=== PATIENT | male | born 1980 | race Caucasian/White ===

== ENCOUNTER 2017-01-10 22:09 | Emergency (ER) | payer SELFPAY ==
[2017-01-10] MEDS ORDERED: Sodium Chloride 0.9% 1000 ML 1,000 ML IV STA (22:44)
[2017-01-10] MEDS ORDERED: Sodium Chloride 0.9% 1000 ML 1,000 ML ONE (22:48)
--- NOTE | 2017-01-10 22:50 | ERPHSYRPT ---
- History of Present Illness Time Seen by Provider: 01/10/17 22:40 Source: patient Exam Limitations: no limitations Patient Subjective Stated Complaint: pt states he has been having chest pain for approx 1-2 hrs. states he has been trying to make it home to [place] and has been walking all day. states he has had a lot of stress recently Triage Nursing Assessment: pt awake and alert, asnwers questions approp. pt tearful. respirations nonlabored with lungs cta. sinus rhythm/ sinus tach on monitor. pt c/o midsternal pain, denies radiation. Physician History: 36-year-old white male arrives with complaint of pain in his anterior chest described as sharp shooting symptoms for approximately one to 2 hours she states she's been walking all day. States he is trying to get to [place]. Patient without shortness of breath no nausea no vomiting. Patient also tells the nurse and tells me that he wants to kill himself he states that he put a gun to his head if he had to He states that he has been treated for depression in the past. Past medical history includes depression. Social history includes amphetamines marijuana Timing/Duration: today (hest pain one to 2 hours) Severity: moderate Modifying Factors: Improves With: nothing Associated Symptoms: chest pain, other (suicidal ideations), No nausea, No vomiting, No abdominal pain, No shortness of breath, No heartburn, No diaphoresis, No cough, No chills, No fever, No headaches, No loss of appetite, No malaise, No rash, No syncope, No seizure, No weakness Allergies/Adverse Reactions: No Known Drug Allergies Allergy (Verified 01/10/17 22:27) Home Medications: No Home Meds 1 ea UD 01/10/17 [History] Hx Tetanus, Diphtheria Vaccination/Date Given: No Hx Influenza Vaccination/Date Given: No Hx Pneumococcal Vaccination/Date Given: No Immunizations Up to Date: No - Review of Systems Constitutional: No Fever, No Chills Eyes: No Symptoms Ears, Nose, & Throat: No Symptoms Respiratory: No Cough, No Dyspnea Cardiac: Chest Pain Abdominal/Gastrointestinal: No Abdominal Pain, No Nausea, No Vomiting, No Diarrhea Genitourinary Symptoms: No Dysuria Musculoskeletal: No Back Pain, No Neck Pain Skin: No Rash Neurological: No Dizziness, No Focal Weakness, No Sensory Changes Psychological: Suicidal Ideations Endocrine: No Symptoms All Other Systems: Reviewed and Negative - Past Medical History Pertinent Past Medical History: No Neurological History: No Pertinent History ENT History: No Pertinent History Cardiac History: No Pertinent History Respiratory History: No Pertinent History Endocrine Medical History: No Pertinent History Musculoskeletal History: No Pertinent History GI Medical History: No Pertinent History History: No Pertinent History Psycho-Social History: No Pertinent History Male Reproductive Disorders: No Pertinent History Other Medical History: denies medical hx - Past Surgical History Past Surgical History: No - Social History Smoking Status: Current every day smoker How long have you smoked: 23 yrs Exposure to second hand smoke: No Drug Use: marijuana, methamphetamines Patient Lives Alone: No - Nursing Vital Signs Nursing Vital Signs: Initial Vital Signs Temperature 98.1 F Temperature Source Oral Pulse Rate 62 Respiratory Rate 16 Blood Pressure [] 133/78 Pain Intensity 3 - Physical Exam General Appearance: no apparent distress, alert, other (tearful) Eye Exam: PERRL/EOMI, eyes nml inspection Ears, Nose, Throat Exam: normal ENT inspection, TMs normal, pharynx normal, moist mucous membranes Neck Exam: normal inspection, non-tender, supple, full range of motion Respiratory Exam: normal breath sounds, lungs clear, No respiratory distress Cardiovascular Exam: regular rate/rhythm, normal heart sounds, normal peripheral pulses Gastrointestinal/Abdomen Exam: soft, normal bowel sounds, No tenderness, No mass Back Exam: normal inspection, normal range of motion, No CVA tenderness, No vertebral tenderness Extremity Exam: normal inspection, normal range of motion, pelvis stable Neurologic Exam: alert, oriented x 3, cooperative, normal mood/affect, nml cerebellar function, nml station & gait, sensation nml, No motor deficits Skin Exam: normal color, warm, dry, No rash SpO2 Interpretation: normal (97%) SpO2: 97 Oxygen Delivery: Room Air - Course Nursing assessment & vital signs reviewed: Yes EKG Interpreted by Me: RATE (84 bpm), NORMAL AXIS, Left [place] Deviation, Other ( EKG: Normal sinus rhythm 84 bpm left axis deviationno acute ST or T wave changes noted) - Radiology Exams Chest X-ray Interpretation: Interpreted by me, Other (no acute disease process noted) Ordered Tests: Active Orders 24 hr Category Date Time Status Primer Boxer STAT Care 01/10/17 22:44 Active EKG-ER Only STAT Care 01/10/17 22:45 Active Psychiatric Evaluation STAT Care 01/11/17 00:59 Active CHEST 1 VIEW (PORTABLE) Stat Exams 01/11/17 00:15 Taken ACETAMINOPHEN Stat Lab 01/10/17 22:48 Completed AMYLASE Stat Lab 01/10/17 22:48 Completed CBC W DIFF Stat Lab 01/10/17 22:48 Completed CMP Stat Lab 01/10/17 22:48 Completed D-DIMER QUANTITATION Stat Lab 01/10/17 22:48 Completed ETHYL ALCOHOL Stat Lab 01/10/17 22:48 Completed Manual Differential NC Stat Lab 01/10/17 22:48 Completed SALICYLATE Stat Lab 01/10/17 22:48 Completed TROPONIN Q3H Lab 01/10/17 22:48 Completed TROPONIN Q3H Lab 01/11/17 00:57 Completed TROPONIN Q3H Lab 01/11/17 04:45 Ordered TROPONIN Q3H Lab 01/11/17 07:45 Ordered TROPONIN Q3H Lab 01/11/17 10:45 Ordered UA W/RFX UR CULTURE Stat Lab 01/10/17 23:25 Completed Urine Triage Profile Stat Lab 01/10/17 23:25 Completed Medication Summary Generic Name Dose Route Start Last Admin Trade Name Freq PRN Reason Stop Dose Admin Sodium Chloride 1,000 mls @ 125 mls/hr 01/11/17 00:30 01/11/17 00:25 Sodium Chloride 0.9% 1000 Ml IV 02/10/17 00:29 125 mls/hr .Q8H STACI Administration Discontinued Medications Generic Name Dose Route Start Last Admin Trade Name Freq PRN Reason Stop Dose Admin Sodium Chloride 1,000 mls @ 999 mls/hr 01/10/17 22:44 01/10/17 22:48 Sodium Chloride 0.9% 1000 Ml IV 01/10/17 23:44 999 mls/hr .Q1H1M STA Administration Sodium Chloride Confirm 01/10/17 22:48 Sodium Chloride 0.9% 1000 Ml Administered 01/10/17 22:49 Dose 1,000 mls @ ud .ROUTE .STK-MED ONE Lab/Rad Data: Laboratory Result Diagrams 01/10/17 22:48 01/10/17 22:48 Laboratory Results 01/11/17 01/10/17 01/10/17 Range/Units 00:57 23:25 23:25 WBC (4.0-10.5) K/mm3 RBC (4.1-5.6) M/mm3 Hgb (12.5-18.0) gm/dl Hct (42-50) % MCV (78-100) fl MCH (26-32) pg MCHC (32-36) g/dl RDW (11.5-14.0) % Plt Count (150-450) K/mm3 MPV (6-9.5) fl Segmented Neutrophils (36.-66.) % Band Neutrophils (0.0-2.0) % Lymphocytes (Manual) (24-44) % Monocytes (Manual) (0.0-12.0) % Differential Comment Platelet Estimate (NORMAL) D-Dimer (0-500) ng/mL Sodium (136-145) mEq/L Potassium (3.5-5.1) mEq/L Chloride (98-107) mEq/L Carbon Dioxide (21-32) mEq/L Anion Gap (5-15) MEQ/L BUN (9-20) mg/dL Creatinine (0.55-1.30) mg/dl Estimated GFR ML/MIN Glucose (70-110) MG/DL Calcium (8.5-10.1) mg/dL Total Bilirubin (0.2-1.0) mg/dL AST (15-37) U/L ALT (12-78) U/L Alkaline Phosphatase (46-116) U/L Troponin I < 0.017 (0.000-0.056) ng/ml Serum Total Protein (6.4-8.2) gm/dL Albumin (3.4-5.0) g/dL Amylase (25-115) U/L Ur Collection Type VOID Urine Color DARK YELLOW (YELLOW) Urine Appearance CLEAR (CLEAR) Urine pH 5.0 (5-6) Ur Specific [place] 1.030 (1.005-1.025) Urine Protein NEGATIVE (Negative) Urine Ketones LARGE (NEGATIVE) Urine Blood NEGATIVE (0-5) Domo/ul Urine Nitrite NEGATIVE (NEGATIVE) Urine Bilirubin NEGATIVE (NEGATIVE) Urine Urobilinogen NORMAL (0-1) mg/dL Ur Leukocyte Esterase NEGATIVE (NEGATIVE) Urine Glucose NEGATIVE (NEGATIVE) mg/dL Salicylates (2.8-20.0) mg/dl Urine Opiates Level NEG. (NEGATIVE) Ur Methadone NEG. (NEGATIVE) Acetaminophen (10-30) ug/ml Urine Barbiturates NEG. (NEGATIVE) Ur Phencyclidine (PCP) NEG. (NEGATIVE) Urine Amphetamine NEG. (NEGATIVE) U Benzodiazepine Level NEG. (NEGATIVE) Urine Cocaine NEG. (NEGATIVE) Urine Marijuana (THC) POS. (NEGATIVE) Ethyl Alcohol (0.00-0.01) % Specimen Received 01/10/17 2330 01/10/17 01/10/17 01/10/17 Range/Units 22:48 22:48 22:48 WBC (4.0-10.5) K/mm3 RBC (4.1-5.6) M/mm3 Hgb (12.5-18.0) gm/dl Hct (42-50) % MCV (78-100) fl MCH (26-32) pg MCHC (32-36) g/dl RDW (11.5-14.0) % Plt Count (150-450) K/mm3 MPV (6-9.5) fl Segmented Neutrophils (36.-66.) % Band Neutrophils (0.0-2.0) % Lymphocytes (Manual) (24-44) % Monocytes (Manual) (0.0-12.0) % Differential Comment Platelet Estimate (NORMAL) D-Dimer < 200 (0-500) ng/mL Sodium (136-145) mEq/L Potassium (3.5-5.1) mEq/L Chloride (98-107) mEq/L Carbon Dioxide (21-32) mEq/L Anion Gap (5-15) MEQ/L BUN (9-20) mg/dL Creatinine (0.55-1.30) mg/dl Estimated GFR ML/MIN Glucose (70-110) MG/DL Calcium (8.5-10.1) mg/dL Total Bilirubin (0.2-1.0) mg/dL AST (15-37) U/L ALT (12-78) U/L Alkaline Phosphatase (46-116) U/L Troponin I < 0.017 (0.000-0.056) ng/ml Serum Total Protein (6.4-8.2) gm/dL Albumin (3.4-5.0) g/dL Amylase (25-115) U/L Ur Collection Type Urine Color (YELLOW) Urine Appearance (CLEAR) Urine pH (5-6) Ur Specific [place] (1.005-1.025) Urine Protein (Negative) Urine Ketones (NEGATIVE) Urine Blood (0-5) Domo/ul Urine Nitrite (NEGATIVE) Urine Bilirubin (NEGATIVE) Urine Urobilinogen (0-1) mg/dL Ur Leukocyte Esterase (NEGATIVE) Urine Glucose (NEGATIVE) mg/dL Salicylates 4.6 (2.8-20.0) mg/dl Urine Opiates Level (NEGATIVE) Ur Methadone (NEGATIVE) Acetaminophen < 2.0 L (10-30) ug/ml Urine Barbiturates (NEGATIVE) Ur Phencyclidine (PCP) (NEGATIVE) Urine Amphetamine (NEGATIVE) U Benzodiazepine Level (NEGATIVE) Urine Cocaine (NEGATIVE) Urine Marijuana (THC) (NEGATIVE) Ethyl Alcohol < 0.010 (0.00-0.01) % Specimen Received 01/10/17 01/10/17 Range/Units 22:48 22:48 WBC 19.2 H (4.0-10.5) K/mm3 RBC 5.21 (4.1-5.6) M/mm3 Hgb 15.9 (12.5-18.0) gm/dl Hct 46.9 (42-50) % MCV 90.0 (78-100) fl MCH 30.5 (26-32) pg MCHC 33.9 (32-36) g/dl RDW 12.3 (11.5-14.0) % Plt Count 262 (150-450) K/mm3 MPV 11.6 H (6-9.5) fl Segmented Neutrophils 85 H (36.-66.) % Band Neutrophils 1 (0.0-2.0) % Lymphocytes (Manual) 11 L (24-44) % Monocytes (Manual) 3 (0.0-12.0) % Differential Comment NORMAL Platelet Estimate NORMAL (NORMAL) D-Dimer (0-500) ng/mL Sodium 142 (136-145) mEq/L Potassium 4.4 (3.5-5.1) mEq/L Chloride 103 (98-107) mEq/L Carbon Dioxide 23.4 (21-32) mEq/L Anion Gap 19.8 H (5-15) MEQ/L BUN 12 (9-20) mg/dL Creatinine 1.17 (0.55-1.30) mg/dl Estimated GFR > 60 ML/MIN Glucose 116 H (70-110) MG/DL Calcium 9.9 (8.5-10.1) mg/dL Total Bilirubin 1.10 H (0.2-1.0) mg/dL AST 25 (15-37) U/L ALT 54 (12-78) U/L Alkaline Phosphatase 87 (46-116) U/L Troponin I (0.000-0.056) ng/ml Serum Total Protein 7.8 (6.4-8.2) gm/dL Albumin 4.8 (3.4-5.0) g/dL Amylase 26 (25-115) U/L Ur Collection Type Urine Color (YELLOW) Urine Appearance (CLEAR) Urine pH (5-6) Ur Specific [place] (1.005-1.025) Urine Protein (Negative) Urine Ketones (NEGATIVE) Urine Blood (0-5) Domo/ul Urine Nitrite (NEGATIVE) Urine Bilirubin (NEGATIVE) Urine Urobilinogen (0-1) mg/dL Ur Leukocyte Esterase (NEGATIVE) Urine Glucose (NEGATIVE) mg/dL Salicylates (2.8-20.0) mg/dl Urine Opiates Level (NEGATIVE) Ur Methadone (NEGATIVE) Acetaminophen (10-30) ug/ml Urine Barbiturates (NEGATIVE) Ur Phencyclidine (PCP) (NEGATIVE) Urine Amphetamine (NEGATIVE) U Benzodiazepine Level (NEGATIVE) Urine Cocaine (NEGATIVE) Urine Marijuana (THC) (NEGATIVE) Ethyl Alcohol (0.00-0.01) % Specimen Received - Progress Progress: improved Progress Note: 01/11/17 02:27 This is a 36-year-old white male with history of depression in the past he arrived initially with complaint of anterior chest pain which began approximately one hour prior to arrival patient apparently had walked all the way from [place] to [place]. He stated that his pain was sharp but it was atypical she is not short of breath no nausea no vomiting. On further interview patient expressed suicidal ideation he apparently is trying to get back to [place] he states he has had depression in the past he has never attempted suicide however he has been thinking about shooting himself in the head and he is told the nurse that he might just jump in front of a train. Patient's vitals are stable patient's EKG shows a normal sinus rhythm 84 bpm left axis deviation there does not appear to be acute ST or T wave changes patient's chemistries essentially normal white count is a elevated at 19.2 however the patient has been walking all day outside hemoglobin 15 9 hematocrit 46.9 d-dimer is less than 2 chest x-ray is unremarkable troponin is within normal limits 2 urinalysis specific gravity 1.030 Acetaminophen level is within normal limits salicylate levels are within normal limits urine drug screen is positive for THC. Patient was given aspirin and EKG obtained's troponin obtained 2 patient was also given IV normal saline 1 L followed by 125 mL per hour chest x-ray was obtained found to be normal. [facility] was contacted for psych consult patient was accepted for transfer by Dr. Baird. Patient will be transferred by ambulance diagnosis of noncardiac chest pain, suicidal ideation - Departure Time of Disposition: 02:30 Departure Disposition: Transfer ([facility] Dr Baird) Clinical Impression: Non-cardiac chest pain, Suicidal ideation Condition: Fair Critical Care Time: No
[2017-01-10 22:52] LABS: Mean Corpuscular Hemoglobin 30.5 pg (26-32); Mean Platelet Volume 11.6 fl (6-9.5); Platelet Count 262 K/mm3 (150-450); Red Blood Count 5.21 M/mm3 (4.1-5.6); Red Cell Distribution Width 12.3 % (11.5-14.0); White Blood Count 19.2 K/mm3 (4.0-10.5)
[2017-01-10 23:01] LABS: ALBUMIN 4.8 g/dL (3.4-5.0); ALKALINE PHOSPHATASE 87 U/L (46-116); ANION GAP 19.8 MEQ/L (5-15); BLOOD UREA NITROGEN 12 mg/dL (9-20); CHLORIDE 103 mEq/L (98-107); Carbon Dioxide 23.4 mEq/L (21-32); Glucose 116 MG/DL (70-110); Potassium 4.4 mEq/L (3.5-5.1); SGOT/AST 25 U/L (15-37); SGPT/ALT 54 U/L (12-78); SODIUM 142 mEq/L (136-145); Total Protein 7.8 gm/dL (6.4-8.2)
[2017-01-10 23:12] LABS: ACETAMINOPHEN < 2.0 ug/ml (10-30); ETHYL ALCOHOL < 0.010 % (0.00-0.01)
[2017-01-10 23:22] LABS: BAND 1 % (0.0-2.0); Total Cells Counted 100
[2017-01-10 23:23] LABS: Platelet Estimate NORMAL (NORMAL)
[2017-01-10 23:29] LABS: Collection Type VOID
[2017-01-10 23:30] LABS: ADD URINE CULTURE? NO (NO); Bilirubin NEGATIVE (NEGATIVE); Blood NEGATIVE Ery/ul (0-5); COMPLETE URINE MICROSCOPIC? NO; Glucose NEGATIVE (NEGATIVE); Leukocyte Esterase NEGATIVE (NEGATIVE)
[2017-01-11] MEDS ORDERED: Sodium Chloride 0.9% 1000 ML 1,000 ML ONE (00:25)
[2017-01-11] MEDS ORDERED: Sodium Chloride 0.9% 1000 ML 1,000 ML IV SCH (00:30)
[2017-01-11 01:48] VITALS: BP 133/78
[2017-01-11] MEDS ORDERED: BABY ASPIRIN 81 MG CHEW PO ONE (03:43)
[2017-01-11] MEDS ORDERED: BABY ASPIRIN 81 MG CHEW ONE (03:58)
[2017-01-11 06:27] VITALS: PULSE 63; O2SAT 98
--- NOTE | 2017-01-11 09:55 | XRAY ---
Indication: Chest pain. Comparison: None Portable chest demonstrates normal heart, lungs, and bony thorax.
== END 2017-01-11 03:15 | disposition short-term general hospital (02) ==
LOC: ED 22:09
DX: R07.89 Other chest pain (principal); R45.851 Suicidal ideations
CPT/HCPCS: 36000; 36415; 71010; 80053; 80307; 81002; 82150; 84484; 85025; 85379; 90791; 93005; 93041; 96360; 96361; 99285; G0481; Q3014; A9270-GY